=== PATIENT | male | born 1970 | race Caucasian/White ===

== ENCOUNTER 2018-03-17 19:21 | Inpatient (IN) | payer MEDICAID ==
[~2018-03-17] VITALS: Ht 182.9 cm; Wt 139.6 kg
[~2018-03-17 19:21] MED LIST: ASPI-650 PO; CEFD300C37 PO; CETI10TA24 PO; CYCL-259 PO; FLUT16SP NAS; INSU100I18 SQ-INSULIN; INSU100I28 SQ-INSULIN; LISI-167 PO; METF10002 PO; METO25TA35 PO; OXYC-302 PO; SIMV20TA PO; SODI45SP4 NAS; SULF-169 PO; glucometer
[2018-03-17 20:00] LABS: BASOPHILS # (AUTO) 0.07 x10^3/uL (0-0.1); BASOPHILS % (AUTO) 1 % (0-1); EOSINOPHILS # (AUTO) 0.04 x10^3/uL (0-0.4); EOSINOPHILS % (AUTO) 0 % (1-7); LYMPHOCYTES # (AUTO) 3.21 x10^3/uL (1-3.4); LYMPHOCYTES % (AUTO) 20 % (22-44); MD NO; MEAN CORPUSCULAR HEMOGLOBIN 29.3 pg (27.5-34.5); MEAN CORPUSCULAR HGB CONC 34.5 g/dL (33.2-36.2); MEAN CORPUSCULAR VOLUME 84.9 fL (81-97); MEAN PLATELET VOLUME 7.4 fL (7.4-10.4); MONOCYTES # (AUTO) 0.35 x10^3/uL (0.2-0.8); MONOCYTES % (AUTO) 2 % (2-9); NEUTROPHILS # (AUTO) 12.66 x10^3/uL (1.8-6.8); NEUTROPHILS % (AUTO) 78 % (42-75); PLATELET COUNT 358 x10^3/uL (130-400); RED BLOOD COUNT 5.42 x10^6/uL (4.38-5.82); RED CELL DISTRIBUTION WIDTH 13.3 % (9.4-14.8)
[2018-03-17] MEDS ORDERED: SODIUM CHLORIDE FLUSH 10ML SYR IVF ONE ×2 (20:00→21:00)
[2018-03-17] MEDS ORDERED: ASPIRIN 81 MG TABLET CHEW PO ONE (20:00)
[2018-03-17 20:10] LABS: ALANINE AMINOTRANSFERASE 23 U/L (12-78); ANION GAP 9 mmol/L (5-15); CALCIUM 9.4 mg/dL (8.5-10.1); CHLORIDE 100 mmol/L (98-107)
[2018-03-17 20:15] LABS: ALKALINE PHOSPHATASE 135 U/L (45-117); BILIRUBIN,TOTAL 0.6 mg/dL (0.2-1.0); TROPONIN I 0.093 ng/mL (0.000-0.045)
[2018-03-17] MEDS ORDERED: HYDR50TA3 PO (20:27)
[2018-03-17] MEDS ORDERED: SPIR50TA2 PO (20:27)
[2018-03-17 20:46] LABS: ACETONE, SERUM Negative (Negative)
[2018-03-17] MEDS ORDERED: MAALOX/HYOSCYAMINE/LIDOCAINE 45 ML BTL PO ONE (21:00)
[2018-03-17 21:11] LABS: MICROSCOPIC INDICATED
[2018-03-17 21:13] LABS: INTERNATIONAL NORMALIZED RATIO 0.97 (0.93-1.1)
[2018-03-17 21:14] LABS: CULTURE INDICATED? NO
[2018-03-17] MEDS ORDERED: ASPIRIN 81 MG TABLET CHEW ONE (21:25)
[2018-03-17] MEDS ORDERED: MAALOX/HYOSCYAMINE/LIDOCAINE 45 ML BTL ONE (21:26)
[2018-03-17] MEDS ORDERED: ACETAMINOPHEN 325 MG TABLET PO PRN (23:00)
[2018-03-17] MEDS ORDERED: CEFTRIAXONE PMX 1GM/50ML 50 ML IV ONE (23:00)
[2018-03-17] MEDS ORDERED: NITROGLYCERIN 0.4 MG BOTTLE (25 TABS) SL PRN (23:00)
[2018-03-17] MEDS ORDERED: BISACODYL 10 MG SUPP PR PRN (23:00)
[2018-03-17] MEDS ORDERED: TEMPLATE NON-FORMULARY MED. (Insulin Aspart (Novolog) 0 UNITS) SQ-INSULIN SCH (23:00)
[2018-03-17] MEDS ORDERED: AZITHROMYCIN 500 MG in SODIUM CHLORIDE 0.9% 250 ML IV ONE (23:00)
[2018-03-17] MEDS ORDERED: POLYETHYLENE GLYCOL 17 GM PACKET PO PRN (23:00)
[2018-03-17] MEDS ORDERED: ONDANSETRON 2MG/ML, 2ML IVPush PRN (23:00)
[2018-03-17 23:33] LABS: HEMOGLOBIN A1C 10.2 % (4.2-6.3)
[2018-03-17] MEDS: INSULIN LISPRO 100 UNITS/ML, PEN SQ-INSULIN SCH (23:54)
[2018-03-17] MEDS: INSULIN GLARGINE 100 UNITS/ML, PEN SQ-INSULIN SCH (23:55)
[2018-03-17] MEDS: HEPARIN 5,000 UNITS/ML, 1ML SQ SCH (23:58)
[2018-03-18] MEDS: SODIUM CHLORIDE 0.9% 1,000 ML IV SCH
[2018-03-18 00:23] VITALS: BP 128/85
[2018-03-18 00:52] VITALS: BP 128/85
[2018-03-18 03:40] LABS: BASOPHILS # (AUTO) 0.09 x10^3/uL (0-0.1); BASOPHILS % (AUTO) 1 % (0-1); EOSINOPHILS # (AUTO) 0.07 x10^3/uL (0-0.4); EOSINOPHILS % (AUTO) 1 % (1-7); LYMPHOCYTES # (AUTO) 2.99 x10^3/uL (1-3.4); LYMPHOCYTES % (AUTO) 23 % (22-44); MD NO; MEAN CORPUSCULAR HEMOGLOBIN 28.8 pg (27.5-34.5); MEAN CORPUSCULAR HGB CONC 33.6 g/dL (33.2-36.2); MEAN CORPUSCULAR VOLUME 85.5 fL (81-97); MEAN PLATELET VOLUME 7.4 fL (7.4-10.4); MONOCYTES # (AUTO) 0.85 x10^3/uL (0.2-0.8); MONOCYTES % (AUTO) 6 % (2-9); NEUTROPHILS # (AUTO) 9.19 x10^3/uL (1.8-6.8); NEUTROPHILS % (AUTO) 70 % (42-75); PLATELET COUNT 287 x10^3/uL (130-400); RED CELL DISTRIBUTION WIDTH 13.7 % (9.4-14.8)
[2018-03-18 03:50] LABS: ALANINE AMINOTRANSFERASE 22 U/L (12-78); ALBUMIN 3.6 g/dL (3.4-5.0); ANION GAP 8 mmol/L (5-15); CALCIUM 9.2 mg/dL (8.5-10.1); CHLORIDE 102 mmol/L (98-107)
[2018-03-18 03:53] LABS: ALKALINE PHOSPHATASE 117 U/L (45-117); BILIRUBIN,TOTAL 0.5 mg/dL (0.2-1.0); CHOL/HDL RATIO 3.2; CHOLESTEROL, TOTAL 141 mg/dL (140-239); HDL CHOL % 31 % (26-37); HDL CHOLESTEROL (DIRECT) 44 mg/dL (40-60); LDL CHOLESTEROL,CALCULATED 73 mg/dL (54-169); LDL/HDL RATIO 1.7 (0.5-3.0); TRIGLYCERIDES 119 mg/dL (50-200); VLDL CHOLESTEROL 24 mg/dL (0-25)
[2018-03-18 03:58] LABS: TROPONIN I 0.102 ng/mL (0.000-0.045)
[2018-03-18] MEDS: ASPIRIN 81 MG TABLET EC PO SCH (05:59)
[2018-03-18] MEDS: HEPARIN 5,000 UNITS/ML, 1ML SQ SCH ×3 (06:44→23:05)
[2018-03-18] MEDS: INSULIN LISPRO 100 UNITS/ML, PEN SQ-INSULIN SCH ×4 (06:54→21:26)
[2018-03-18 07:22] VITALS: BP 147/87
[2018-03-18 08:24] LABS: TROPONIN I 0.092 ng/mL (0.000-0.045)
[2018-03-18] MEDS ORDERED: REGADENOSON 0.4 MG/5 ML SYRINGE ONE (08:34)
[2018-03-18] MEDS: SENNA/DOCUSATE TABLET PO SCH (09:00)
[2018-03-18] MEDS: LISINOPRIL 5 MG TABLET PO SCH (10:11)
[2018-03-18] MEDS: HYDROCHLOROTHIAZIDE 25 MG TABLET PO SCH (10:11)
[2018-03-18 15:00] VITALS: BP 121/73
[2018-03-18 16:22] LABS: TROPONIN I 0.084 ng/mL (0.000-0.045)
[2018-03-18 20:25] VITALS: BP 116/81
[2018-03-18] MEDS: INSULIN GLARGINE 100 UNITS/ML, PEN SQ-INSULIN SCH (21:27)
[2018-03-19 01:39] VITALS: BP 120/85
[2018-03-19] MEDS: SODIUM CHLORIDE 0.9% 1,000 ML IV SCH (04:53)
[2018-03-19] MEDS: ASPIRIN 81 MG TABLET EC PO SCH (05:24)
[2018-03-19] MEDS: HEPARIN 5,000 UNITS/ML, 1ML SQ SCH (05:24)
[2018-03-19 05:27] LABS: ANION GAP 6 mmol/L (5-15); CALCIUM 9.5 mg/dL (8.5-10.1); CHLORIDE 99 mmol/L (98-107)
[2018-03-19 05:28] LABS: CREATININE 1.29 mg/dL (0.7-1.3)
[2018-03-19 06:01] LABS: BASOPHILS # (AUTO) 0.05 x10^3/uL (0-0.1); BASOPHILS % (AUTO) 0 % (0-1); EOSINOPHILS % (AUTO) 1 % (1-7); LYMPHOCYTES # (AUTO) 3.09 x10^3/uL (1-3.4); LYMPHOCYTES % (AUTO) 23 % (22-44); MD SCAN; MEAN CORPUSCULAR HEMOGLOBIN 29.2 pg (27.5-34.5); MEAN CORPUSCULAR VOLUME 85.7 fL (81-97); MEAN PLATELET VOLUME 7.7 fL (7.4-10.4); MONOCYTES # (AUTO) 0.82 x10^3/uL (0.2-0.8); MONOCYTES % (AUTO) 6 % (2-9); NEUTROPHILS # (AUTO) 9.62 x10^3/uL (1.8-6.8); NEUTROPHILS % (AUTO) 70 % (42-75); PLATELET COUNT 265 x10^3/uL (130-400); RED BLOOD COUNT 5.33 x10^6/uL (4.38-5.82); RED CELL DISTRIBUTION WIDTH 13.2 % (9.4-14.8)
[2018-03-19] MEDS: INSULIN LISPRO 100 UNITS/ML, PEN SQ-INSULIN SCH (07:00)
[2018-03-19 09:15] VITALS: BP 125/76
[2018-03-19] MEDS: LISINOPRIL 5 MG TABLET PO SCH (09:18)
[2018-03-19] MEDS: HYDROCHLOROTHIAZIDE 25 MG TABLET PO SCH (09:18)
[2018-03-19] MEDS: SENNA/DOCUSATE TABLET PO SCH (09:18)
== END 2018-03-19 12:05 | disposition left against medical advice (07) | DRG 280 ==
LOC: ED 21:56 → EDIP 22:17 → 5SO 23:17
PROVIDERS: ADMIT Hospitalist; ATTEND Hospitalist
DX: I21.4 Non-ST elevation (NSTEMI) myocardial infarction (principal); J18.9 Pneumonia, unspecified organism; Z68.41 Body mass index [BMI] 40.0-44.9, adult; I11.9 Hypertensive heart disease without heart failure; E66.01 Morbid (severe) obesity due to excess calories; I24.9 Acute ischemic heart disease, unspecified; R00.0 Tachycardia, unspecified; Z53.21 Procedure and treatment not carried out due to patient leaving prior to being seen by health care provider; E11.65 Type 2 diabetes mellitus with hyperglycemia; D72.829 Elevated white blood cell count, unspecified; Z79.82 Long term (current) use of aspirin; Z79.4 Long term (current) use of insulin; Z82.49 Family history of ischemic heart disease and other diseases of the circulatory system; Z85.3 Personal history of malignant neoplasm of breast; Z87.891 Personal history of nicotine dependence; I25.2 Old myocardial infarction; Z79.899 Other long term (current) drug therapy
CPT/HCPCS: 36415; 71045; 71046; 76700; 78452; 80048; 80053; 80061; 81001; 82010; 82803; 82962; 83036; 83690; 83735; 84100; 84484; 85025; 85610; 93005; 93017; 93306; 96374; J0456; J0696; J1644; J2785; A9502; J1815; J7030; J7050

== ENCOUNTER 2018-05-02 17:32 | Emergency (ER) | payer MEDICAID ==
[~2018-05-02] VITALS: Ht 182.9 cm; Wt 142.0 kg
[~2018-05-02 17:32] MED LIST changes: +HYDR50TA3 PO; +SPIR50TA4 PO
[2018-05-02] MEDS ORDERED: ASPIRIN 81 MG TABLET CHEW PO ONE (18:00)
[2018-05-02] MEDS ORDERED: ASPIRIN 81 MG TABLET CHEW ONE (18:05)
[2018-05-02 18:42] LABS: BASOPHILS # (AUTO) 0.04 x10^3/uL (0-0.1); BASOPHILS % (AUTO) 0 % (0-1); EOSINOPHILS # (AUTO) 0.09 x10^3/uL (0-0.4); EOSINOPHILS % (AUTO) 1 % (1-7); LYMPHOCYTES # (AUTO) 2.81 x10^3/uL (1-3.4); LYMPHOCYTES % (AUTO) 18 % (22-44); MD NO; MEAN CORPUSCULAR HEMOGLOBIN 29.5 pg (27.5-34.5); MEAN CORPUSCULAR HGB CONC 34.6 g/dL (33.2-36.2); MEAN CORPUSCULAR VOLUME 85.4 fL (81-97); MEAN PLATELET VOLUME 7.7 fL (7.4-10.4); MONOCYTES # (AUTO) 0.87 x10^3/uL (0.2-0.8); MONOCYTES % (AUTO) 6 % (2-9); NEUTROPHILS # (AUTO) 11.56 x10^3/uL (1.8-6.8); NEUTROPHILS % (AUTO) 75 % (42-75); PLATELET COUNT 324 x10^3/uL (130-400); RED BLOOD COUNT 4.86 x10^6/uL (4.38-5.82); RED CELL DISTRIBUTION WIDTH 13.2 % (9.4-14.8)
[2018-05-02 18:46] LABS: ALANINE AMINOTRANSFERASE 31 U/L (12-78); ALBUMIN 3.9 g/dL (3.4-5.0); ANION GAP 9 mmol/L (5-15); CALCIUM 9.4 mg/dL (8.5-10.1); CHLORIDE 98 mmol/L (98-107); CREATININE 1.36 mg/dL (0.7-1.3)
[2018-05-02 18:50] LABS: ALKALINE PHOSPHATASE 113 U/L (45-117); BILIRUBIN,TOTAL 0.5 mg/dL (0.2-1.0); TROPONIN I 0.079 ng/mL (0.000-0.045)
[2018-05-02 21:05] VITALS: BP 122/88
== END 2018-05-02 21:39 | disposition home or self-care (01) ==
LOC: ED 21:02
DX: R07.89 Other chest pain (principal); I10 Essential (primary) hypertension; E11.9 Type 2 diabetes mellitus without complications
CPT/HCPCS: 36415; 71045; 80053; 84484; 85025; 85379; 93005; 99285